=== PATIENT | male | born 1985 | race Two or more races ===

== ENCOUNTER 2023-04-07 09:30 | Emergency (ER) | payer BC, OTHER ==
[~2023-04-07] VITALS: Ht 180.3 cm; Wt 55.0 kg
[2023-04-07 10:55] VITALS: TEMP 99
[2023-04-07] MEDS ORDERED: MORPHINE SULFATE INJ 2 MG/ml SYRG IM ONE (11:00)
[2023-04-07] MEDS ORDERED: PROMETHAZINE HCL 25 MG/ML 1ML IM ONE (11:00)
[2023-04-07 13:33] VITALS: RESP 15
[2023-04-07 13:34] VITALS: BP 141/83; PULSE 83; O2SAT 93
[2023-04-07] MEDS ORDERED: PRED20TA2 PO (13:55)
[2023-04-07] MEDS ORDERED: HYDR-4798 PO (13:55)
== END 2023-04-07 14:26 | disposition home or self-care (01) ==
LOC: EDBD 09:30 → ER 09:30
DX: S32.018A Other fracture of first lumbar vertebra, initial encounter for closed fracture (principal); G89.29 Other chronic pain; M54.59 Other low back pain; F17.210 Nicotine dependence, cigarettes, uncomplicated; V43.52XA Car driver injured in collision with other type car in traffic accident, initial encounter; Y93.89 Activity, other specified; Y92.89 Other specified places as the place of occurrence of the external cause; Y99.8 Other external cause status
CPT/HCPCS: 71250; 72131; 74176; 96372; 99285; J2270; J2550